=== PATIENT | female | born 1980 | race African-American/Black ===

== ENCOUNTER 2019-04-17 18:17 | Inpatient (IN) | payer MEDICARE, OTHER ==
[~2019-04-17] VITALS: Ht 162.6 cm; Wt 83.5 kg
[~2019-04-17 18:17] MED LIST: INSULIN REGULAR (DRIP) 100 UNITS in SODIUM CHLORIDE 0.9% 99 ML IV NR
[2019-04-17] MEDS ORDERED: MORPHINE SULFATE 4 MG/ML CPJ (NOT FOR IM USE) IV STA (19:07)
[2019-04-17] MEDS ORDERED: ONDANSETRON HCL 4MG/2ML INJ IV STA (19:07)
[2019-04-17] MEDS ORDERED: SODIUM CHLORIDE 0.9% 1,000 ML IV ONE (19:07)
[2019-04-17 19:45] LABS: BASOPHILS % 0.5 % (0.0-2.0); EOSINOPHILS % 0.1 % (0.0-5.0); HEMATOCRIT. 40.7 % (36.0-48.0); HEMOGLOBIN. 13.9 g/dL (12.0-16.0); LYMPHOCYTES % 9.2 % (20.0-50.0); MEAN CORPUSCULAR HEMOGLOBIN 40.2 pg (28.0-32.0); MEAN CORPUSCULAR VOLUME 117.8 fL (81.0-99.0); MEAN PLATELET VOLUME 8.2 fl (7.4-10.4); MONOCYTES % 4.1 % (2.0-8.0); NEUTROPHILS % 86.1 % (40.0-76.0); PLATELET 263 x1000/uL (130-400); RED BLOOD CELL COUNT 3.45 mill/uL (4.2-5.4); RED CELL DISTRIBUTION WIDTH 14.3 % (11.6-14.6)
[2019-04-17 19:49] LABS: CHLORIDE 89 mEq/L (98-107)
[2019-04-17 19:59] LABS: PLATELET ESTIMATE NORMAL
[2019-04-17] MEDS ORDERED: SODIUM CHLORIDE 0.9% 1,000 ML IV NR (21:00)
[2019-04-17 21:40] LABS: B-HCG QUANTITATIVE 7 mIU/mL (<3)
[2019-04-17 23:08] LABS: CLARITY URINE TURBID (CLEAR); COLOR URINE YELLOW (YELLOW); KETONES URINE 3+ (NEGATIVE); LEUKOCYTE ESTERASE URINE NEGATIVE (NEGATIVE); NITRITE URINE NEGATIVE (NEGATIVE); OCCULT BLOOD URINE 2+ (NEGATIVE); PROTEIN URINE 3+ (NEGATIVE); SPECIFIC GRAVITY URINE 1.018 (1.005-1.030); UROBILINOGEN URINE 0.2 E.U./dL (0.2-1.0)
[2019-04-17 23:32] LABS: PHOSPHORUS 6.6 mg/dL (2.5-4.9)
[2019-04-18] VITALS (22 sets, daily range): BP systolic 116–175; BP diastolic 69–109
[2019-04-18] MEDS ORDERED: SODIUM CHLORIDE 0.9% 1,000 ML IV ONE
[2019-04-18] MEDS ORDERED: MAGNESIUM/ALUMINUM HYDROXIDE/SIMETHICONE 30ML UDC PO PRN (00:30)
[2019-04-18] MEDS ORDERED: CLONIDINE 0.1MG TABLET PO PRN (00:30)
[2019-04-18] MEDS ORDERED: INSULIN REGULAR (DRIP) 100 UNITS in SODIUM CHLORIDE 0.9% 100 ML IV SCH (00:30)
[2019-04-18] MEDS ORDERED: DEXTROSE 50% WATER 50ML SYRINGE IV PRN ×3 (01:45→12:30)
[2019-04-18] MEDS ORDERED: HYDRALAZINE 20MG/ML VIAL IV PRN (01:45)
[2019-04-18] MEDS ORDERED: AZAT50TA24 PO (02:01)
[2019-04-18] MEDS ORDERED: DIPH25CA83 PO (02:01)
[2019-04-18] MEDS ORDERED: METO100T16 PO (02:01)
[2019-04-18] MEDS ORDERED: INSU100V36 SQ (02:01)
[2019-04-18] MEDS ORDERED: INSU100C6 SQ (02:01)
[2019-04-18] MEDS ORDERED: SIMV20TA6 PO (02:01)
[2019-04-18] MEDS ORDERED: SODIUM CHLORIDE 0.9% 1,000 ML IV SCH (02:16)
[2019-04-18] MEDS: BLOOD SUGAR DIAGNOSTIC STRIP TEST SCH ×15 (02:42→20:25)
[2019-04-18] MEDS: LORAZEPAM 2MG/ML CPJ IV PRN ×2 (02:43→08:53)
[2019-04-18 02:49] LABS: PHOSPHORUS 5.1 mg/dL (2.5-4.9)
[2019-04-18] MEDS ORDERED: INSULIN REGULAR (DRIP) 100 UNITS in SODIUM CHLORIDE 0.9% 99 ML IV SCH (03:00)
[2019-04-18] MEDS ORDERED: NON FORMULARY PATIENT HOME MED XX SCH (03:15)
[2019-04-18] MEDS: DIPHENHYDRAMINE 50MG/ML VIAL IV PRN ×4 (04:46→23:47)
[2019-04-18] MEDS: ONDANSETRON HCL 4MG/2ML INJ IV PRN ×3 (04:46→23:47)
[2019-04-18] MEDS: MORPHINE SULFATE 2 MG/ML CPJ (NOT FOR IM USE) IV PRN ×2 (08:54→23:47)
[2019-04-18] MEDS: AZATHIOPRINE 50MG TABLET PO SCH ×3 (08:54→17:44)
[2019-04-18] MEDS: METOPROLOL TARTRATE 100MG TABLET PO SCH (08:55)
[2019-04-18] MEDS: AMLODIPINE 10MG TABLET PO SCH (08:55)
[2019-04-18] MEDS ORDERED: FAMOTIDINE 20MG/2ML VIAL IV SCH ×2 (09:00→09:15)
[2019-04-18 09:44] LABS: BG BASE EXCESS -9.4 mmol/L (-2.0-2.0); BG CARBOXYHEMOGLOBIN 0.2 % (0.5-1.5); BG DEOXYHEMOGLOBIN 13.8 % (0.0-5.0); BG FRACTION INSPIRED OXYGEN 32; BG METHEMOGLOBIN 0.1 % (0.0-1.5); BG OXYGEN SATURATION 86.2 % (92.0-98.5); BG OXYHEMOGLOBIN 85.9 % (94.0-97.0); BG PCO2 33.3 mmHg (35.0-45.0); BG PH 7.299 (7.350-7.450); BG PO2 51.9 mmHg (75.0-100.0); BG SAMPLE SITE RIGHT RADIAL; BG TOTAL HEMOGLOBIN 11.9 g/dL (12.0-18.0); BG VENT MODE NASAL CANNULA
[2019-04-18 10:23] LABS: BASOPHILS % 0.2 % (0.0-2.0); EOSINOPHILS % 0.2 % (0.0-5.0); HEMATOCRIT. 33.6 % (36.0-48.0); HEMOGLOBIN. 11.9 g/dL (12.0-16.0); LYMPHOCYTES % 7.8 % (20.0-50.0); MEAN CORPUSCULAR HEMOGLOBIN 39.9 pg (28.0-32.0); MEAN CORPUSCULAR VOLUME 112.8 fL (81.0-99.0); MEAN PLATELET VOLUME 7.9 fl (7.4-10.4); MONOCYTES % 6.3 % (2.0-8.0); NEUTROPHILS % 85.5 % (40.0-76.0); PLATELET 193 x1000/uL (130-400); RED BLOOD CELL COUNT 2.98 mill/uL (4.2-5.4); RED CELL DISTRIBUTION WIDTH 13.9 % (11.6-14.6)
[2019-04-18 10:30] LABS: CHLORIDE 112 mEq/L (98-107)
[2019-04-18] MEDS ORDERED: SODIUM BICARBONATE 100 MEQ in SODIUM CHLORIDE 0.45% 1,000 ML IV SCH (11:30)
[2019-04-18] MEDS: SODIUM CHLORIDE 0.9% 1,000 ML IV SCH ×2 (11:51→20:29)
[2019-04-18] MEDS ORDERED: INSULIN GLARGINE UD 100 UNITS/ML SYR SUBCUT SCH (13:00)
[2019-04-18] MEDS ORDERED: INSULIN LISPRO 100 UNITS/ML SUBCUT SCH (13:20)
[2019-04-18 16:29] LABS: CREATINE KINASE 155 IU/L (26-192)
[2019-04-18] MEDS ORDERED: INS NPH/REG HM 70-30 100 UNITS/ML 10ML VIAL (HUMULIN 70-30) SUBCUT NR (17:00)
[2019-04-18] MEDS: INSULIN LISPRO 100 UNITS/ML SUBCUT SCH ×2 (17:44→21:00)
[2019-04-18 19:35] LABS: CHLORIDE 114 mEq/L (98-107)
[2019-04-18] MEDS: ATORVASTATIN CALCIUM 10MG TABLET PO SCH (20:30)
[2019-04-18] MEDS ORDERED: INS NPH/REG HM 70-30 100 UNITS/ML 10ML VIAL (HUMULIN 70-30) SUBCUT SCH (21:00)
[2019-04-19] VITALS (31 sets, daily range): BP systolic 118–188; BP diastolic 68–125
[2019-04-19] MEDS: LORAZEPAM 2MG/ML CPJ IV PRN ×2 (01:06→12:56)
[2019-04-19 01:14] LABS: CHLORIDE 111 mEq/L (98-107)
[2019-04-19 05:40] LABS: BASOPHILS % 0.1 % (0.0-2.0); EOSINOPHILS % 0.4 % (0.0-5.0); HEMATOCRIT. 35.1 % (36.0-48.0); HEMOGLOBIN. 12.2 g/dL (12.0-16.0); LYMPHOCYTES % 13.2 % (20.0-50.0); MEAN CORPUSCULAR HEMOGLOBIN 39.9 pg (28.0-32.0); MEAN CORPUSCULAR VOLUME 114.3 fL (81.0-99.0); MEAN PLATELET VOLUME 8.7 fl (7.4-10.4); MONOCYTES % 10.2 % (2.0-8.0); NEUTROPHILS % 76.1 % (40.0-76.0); PLATELET 101 x1000/uL (130-400); RED BLOOD CELL COUNT 3.07 mill/uL (4.2-5.4); RED CELL DISTRIBUTION WIDTH 14.6 % (11.6-14.6)
[2019-04-19 05:51] LABS: CHLORIDE 110 mEq/L (98-107)
[2019-04-19 05:58] LABS: PHOSPHORUS 1.1 mg/dL (2.5-4.9)
[2019-04-19] MEDS: BLOOD SUGAR DIAGNOSTIC STRIP TEST SCH ×16 (08:05→23:49)
[2019-04-19] MEDS ORDERED: INSULIN REGULAR (DRIP) 100 UNITS in SODIUM CHLORIDE 0.9% 99 ML IV PRN (08:15)
[2019-04-19] MEDS ORDERED: DEXTROSE 50% WATER 50ML SYRINGE IV PRN ×2 (08:30)
[2019-04-19] MEDS ORDERED: INS NPH/REG HM 70-30 100 UNITS/ML 10ML VIAL (HUMULIN 70-30) SUBCUT SCH (09:00)
[2019-04-19] MEDS: AMLODIPINE 10MG TABLET PO SCH (09:09)
[2019-04-19] MEDS: AZATHIOPRINE 50MG TABLET PO SCH ×3 (09:09→17:21)
[2019-04-19] MEDS: METOPROLOL TARTRATE 100MG TABLET PO SCH (09:09)
[2019-04-19] MEDS ORDERED: LIDOCAINE HCL 1% 20ML VIAL (Pyxis) INJ ONE (09:45)
[2019-04-19] MEDS ORDERED: INSULIN REGULAR (DRIP) 100 UNITS in SODIUM CHLORIDE 0.9% 100 ML IV SCH (10:00)
[2019-04-19] MEDS: SODIUM CHLORIDE 0.9% 1,000 ML IV SCH (11:05)
[2019-04-19] MEDS: DIPHENHYDRAMINE 50MG/ML VIAL IV PRN (12:24)
[2019-04-19] MEDS: MORPHINE SULFATE 2 MG/ML CPJ (NOT FOR IM USE) IV PRN ×2 (12:25→22:14)
[2019-04-19 12:57] LABS: *AMPHETAMINES SCREEN URINE NEGATIVE (NEGATIVE); *BARBITURATES SCREEN URINE NEGATIVE (NEGATIVE); *BENZODIAZEPINES SCREEN URINE NEGATIVE (NEGATIVE); *COCAINE SCREEN URINE NEGATIVE (NEGATIVE); CANNABINOID URINE SCREEN NEGATIVE (NEGATIVE)
[2019-04-19 12:58] LABS: METHADONE URINE SCREEN NEGATIVE (NEGATIVE); PHENCYCLIDINE URINE SCREEN NEGATIVE (NEGATIVE)
[2019-04-19] MEDS ORDERED: SODIUM PHOS,M-BASIC-D-BASIC 20 MM in DEXT 5% WATER 243.3333 ML IV NR (13:00)
[2019-04-19] MEDS ORDERED: MAGNESIUM 4 G PREMIX 100 ML IV NR (13:00)
[2019-04-19 13:02] LABS: OPIATES URINE SCREEN PRESUMTIVE POSITIVE (NEGATIVE)
[2019-04-19] MEDS ORDERED: HALOPERIDOL LACTATE 5MG/ML VIAL IM PRN (13:15)
[2019-04-19] MEDS: QUETIAPINE FUMARATE 25MG TABLET PO SCH (14:01)
[2019-04-19 15:47] LABS: CHLORIDE 110 mEq/L (98-107)
[2019-04-19 19:12] LABS: CHLORIDE 108 mEq/L (98-107)
[2019-04-19] MEDS ORDERED: KCL 20MEQ/100ML PREMIX 100 ML IV NR (20:00)
[2019-04-19] MEDS: ATORVASTATIN CALCIUM 10MG TABLET PO SCH (21:00)
[2019-04-19] MEDS ORDERED: DEXT 5%/0.9% NACL 1,000 ML IV SCH (22:00)
[2019-04-19 22:54] LABS: CHLORIDE 110 mEq/L (98-107)
[2019-04-20] VITALS (18 sets, daily range): BP systolic 128–157; BP diastolic 85–115
[2019-04-20 00:23] LABS: PHOSPHORUS 1.9 mg/dL (2.5-4.9)
[2019-04-20] MEDS: BLOOD SUGAR DIAGNOSTIC STRIP TEST SCH ×11 (00:32→21:17)
[2019-04-20] MEDS ORDERED: KCL 20MEQ/100ML PREMIX 100 ML IV NR (02:00)
[2019-04-20] MEDS: LORAZEPAM 2MG/ML CPJ IV PRN ×3 (02:14→23:02)
[2019-04-20] MEDS: MORPHINE SULFATE 2 MG/ML CPJ (NOT FOR IM USE) IV PRN ×3 (03:46→13:29)
[2019-04-20] MEDS ORDERED: POTASSIUM CHLORIDE INJ 30 MEQ in DEXT 5%/0.9% NACL 1,000 ML IV SCH ×2 (04:00→23:00)
[2019-04-20 05:44] LABS: BASOPHILS % 0.3 % (0.0-2.0); EOSINOPHILS % 2.8 % (0.0-5.0); HEMATOCRIT. 33.9 % (36.0-48.0); LYMPHOCYTES % 19.8 % (20.0-50.0); MEAN CORPUSCULAR HEMOGLOBIN 39.9 pg (28.0-32.0); MEAN CORPUSCULAR VOLUME 112.9 fL (81.0-99.0); MEAN PLATELET VOLUME 8.3 fl (7.4-10.4); NEUTROPHILS % 72.1 % (40.0-76.0); PLATELET 148 x1000/uL (130-400); RED CELL DISTRIBUTION WIDTH 14.2 % (11.6-14.6)
[2019-04-20 05:52] LABS: CHLORIDE 110 mEq/L (98-107)
[2019-04-20 06:06] LABS: PHOSPHORUS 2.6 mg/dL (2.5-4.9)
[2019-04-20 06:07] LABS: LDL CHOLESTEROL 113 mg/dL (5-100)
[2019-04-20 06:09] LABS: T4 FREE 1.34 ng/dL (0.76-1.46)
[2019-04-20 06:11] LABS: HDL CHOLESTEROL 37 mg/dL (40-59)
[2019-04-20] MEDS ORDERED: INSULIN LISPRO 100 UNITS/ML SUBCUT SCH (07:50)
[2019-04-20] MEDS ORDERED: INSULIN GLARGINE UD 100 UNITS/ML SYR SUBCUT SCH (08:00)
[2019-04-20] MEDS: ONDANSETRON HCL 4MG/2ML INJ IV PRN ×2 (08:10→21:18)
[2019-04-20] MEDS: QUETIAPINE FUMARATE 25MG TABLET PO SCH (08:10)
[2019-04-20] MEDS: DIPHENHYDRAMINE 50MG/ML VIAL IV PRN ×2 (08:10→21:18)
[2019-04-20] MEDS: AMLODIPINE 10MG TABLET PO SCH (08:10)
[2019-04-20] MEDS: METOPROLOL TARTRATE 100MG TABLET PO SCH (08:10)
[2019-04-20] MEDS: AZATHIOPRINE 50MG TABLET PO SCH ×4 (08:10→18:02)
[2019-04-20] MEDS: INSULIN LISPRO (LOW DOSE) 100 UNITS/ML SUBCUT SCH ×3 (08:14→17:40)
[2019-04-20] MEDS: INSULIN LISPRO 100 UNITS/ML SUBCUT SCH ×3 (08:17→17:58)
[2019-04-20] MEDS ORDERED: MAGNESIUM 2 G PREMIX 50 ML IV SCH (09:00)
[2019-04-20 11:00] LABS: T4 FREE 1.41 ng/dL (0.76-1.46)
[2019-04-20 11:11] LABS: FOLIC ACID (FOLATE) SERUM 8.3 ng/mL (>5.38)
[2019-04-20] MEDS ORDERED: INSULIN REGULAR (HUMULIN R) UD 100 UNITS/ML SYR SUBCUT NR (18:30)
[2019-04-20] MEDS ORDERED: INSULIN GLARGINE UD 100 UNITS/ML SYR SUBCUT NR (18:30)
[2019-04-20] MEDS: ATORVASTATIN CALCIUM 10MG TABLET PO SCH (21:17)
[2019-04-20] MEDS ORDERED: INSULIN REGULAR (HUMULIN R) 300UNITS/3ML SUBCUT NR (21:30)
[2019-04-21] VITALS: BP 144/79
[2019-04-21] MEDS ORDERED: SODIUM CHL 0.45% + KCL 20MEQ/L 1,000 ML IV SCH (02:00)
[2019-04-21] MEDS: MORPHINE SULFATE 2 MG/ML CPJ (NOT FOR IM USE) IV PRN (02:20)
[2019-04-21] MEDS ORDERED: INSULIN LISPRO SUBCUT SCH ×2 (07:40)
[2019-04-21 07:56] LABS: HEMATOCRIT. 31.6 % (36.0-48.0); HEMOGLOBIN. 11.3 g/dL (12.0-16.0); MEAN CORPUSCULAR HEMOGLOBIN 40.4 pg (28.0-32.0); MEAN CORPUSCULAR VOLUME 112.9 fL (81.0-99.0); RED CELL DISTRIBUTION WIDTH 14.2 % (11.6-14.6)
[2019-04-21 08:00] VITALS: BP 143/101
[2019-04-21 08:05] LABS: CHLORIDE 106 mEq/L (98-107)
[2019-04-21 08:11] LABS: PHOSPHORUS 4.2 mg/dL (2.5-4.9)
[2019-04-21 08:20] VITALS: BP 141/101
[2019-04-21] MEDS: BLOOD SUGAR DIAGNOSTIC STRIP TEST SCH (08:22)
[2019-04-21] MEDS: AZATHIOPRINE 50MG TABLET PO SCH (08:27)
[2019-04-21] MEDS: QUETIAPINE FUMARATE 25MG TABLET PO SCH (08:28)
[2019-04-21] MEDS: AMLODIPINE 10MG TABLET PO SCH (08:28)
[2019-04-21] MEDS: METOPROLOL TARTRATE 100MG TABLET PO SCH (08:28)
[2019-04-21] MEDS ORDERED: INSULIN DEGLUDEC SUBCUT SCH (09:00)
[2019-04-21 10:18] LABS: PLATELET ESTIMATE NORMAL
[2019-04-21] MEDS ORDERED: [UNRECOGNIZED DRUG - REMARK] SUBCUT SCH (12:40)
[2019-04-22] MEDS ORDERED: [UNRECOGNIZED DRUG - REMARK] SUBCUT SCH (09:00)
== END 2019-04-21 09:21 | disposition left against medical advice (07) | DRG 438 ==
LOC: ER 18:17 → CVICU 23:52 → EDBEDREQTM 04-18 00:04 → EDBEDREQ 04-18 00:04 → ENRESERV 04-18 00:06 → 7WST 04-20 11:49
PROVIDERS: ADMIT Hospitalist; ATTEND Hospitalist
PROC: 05HM33Z Insertion of Infusion Device into Right Internal Jugular Vein, Percutaneous Approach (ICD-10-PCS; principal; 2019-04-19)
PROC: B543ZZA Ultrasonography of Right Jugular Veins, Guidance (ICD-10-PCS; 2019-04-19)
DX: K85.90 Acute pancreatitis without necrosis or infection, unspecified (principal); E11.10 Type 2 diabetes mellitus with ketoacidosis without coma; G92 Toxic encephalopathy; L51.1 Stevens-Johnson syndrome; N17.9 Acute kidney failure, unspecified; E87.1 Hypo-osmolality and hyponatremia; E11.22 Type 2 diabetes mellitus with diabetic chronic kidney disease; N18.9 Chronic kidney disease, unspecified; M06.9 Rheumatoid arthritis, unspecified; K58.0 Irritable bowel syndrome with diarrhea; E66.9 Obesity, unspecified; M79.7 Fibromyalgia; E87.5 Hyperkalemia; E83.42 Hypomagnesemia; E87.6 Hypokalemia; I12.9 Hypertensive chronic kidney disease with stage 1 through stage 4 chronic kidney disease, or unspecified chronic kidney disease; Z78.1 Physical restraint status; Z79.4 Long term (current) use of insulin; Z82.49 Family history of ischemic heart disease and other diseases of the circulatory system; Z83.3 Family history of diabetes mellitus; Z88.0 Allergy status to penicillin; Z88.2 Allergy status to sulfonamides; Z88.8 Allergy status to other drugs, medicaments and biological substances; Z88.1 Allergy status to other antibiotic agents; Z91.040 Latex allergy status; Z68.31 Body mass index [BMI] 31.0-31.9, adult
CPT/HCPCS: 36415; 36600; 70551; 71045; 74176; 76770; 76801; 76937; 80048; 80061; 80305; 80320; 81003; 81025; 82010; 82140; 82375; 82533; 82550; 82607; 82746; 82805; 82962; 83036; 83735; 84100; 84439; 84443; 84481; 84702; 93970; 96361; 96365; 96375; 99285; C1725; J0360; J1200; J1630; J1815; J2060; J2270; J2405; J3475; J3480; J3490; J7030; J7042; J7050; J7060; J7500; G0480

== ENCOUNTER 2019-04-21 10:21 | Inpatient (IN) | payer MEDICARE, OTHER ==
[~2019-04-21] VITALS: Ht 165.1 cm; Wt 80.9 kg
[~2019-04-21 10:21] MED LIST changes: +AZAT50TA24 PO; +DIPH25CA83 PO; +INSU100C6 SQ; +INSU100V36 SQ; -INSULIN REGULAR (DRIP) 100 UNITS in SODIUM CHLORIDE 0.9% 99 ML IV NR; +METO100T16 PO; +SIMV20TA6 PO
[2019-04-21] MEDS ORDERED: AMLODIPINE 5MG TABLET PO ONE (13:00)
[2019-04-21 13:59] LABS: BASOPHILS % 0.5 % (0.0-2.0); EOSINOPHILS % 1.7 % (0.0-5.0); HEMATOCRIT. 34.5 % (36.0-48.0); LYMPHOCYTES % 11.4 % (20.0-50.0); MEAN CORPUSCULAR HEMOGLOBIN 39.3 pg (28.0-32.0); MEAN CORPUSCULAR VOLUME 112.8 fL (81.0-99.0); MEAN PLATELET VOLUME 8.2 fl (7.4-10.4); NEUTROPHILS % 79.4 % (40.0-76.0); PLATELET 169 x1000/uL (130-400); RED BLOOD CELL COUNT 3.06 mill/uL (4.2-5.4); RED CELL DISTRIBUTION WIDTH 14.1 % (11.6-14.6)
[2019-04-21 14:04] LABS: CHLORIDE 102 mEq/L (98-107)
[2019-04-21 14:16] LABS: PLATELET ESTIMATE NORMAL
[2019-04-21 14:39] LABS: CLARITY URINE CLEAR (CLEAR); COLOR URINE YELLOW (YELLOW); KETONES URINE 1+ (NEGATIVE); LEUKOCYTE ESTERASE URINE NEGATIVE (NEGATIVE); NITRITE URINE NEGATIVE (NEGATIVE); OCCULT BLOOD URINE NEGATIVE (NEGATIVE); PH URINE 5.5 (4.5-8.0); PROTEIN URINE 2+ (NEGATIVE); SPECIFIC GRAVITY URINE 1.029 (1.005-1.030); UROBILINOGEN URINE 0.2 E.U./dL (0.2-1.0)
[2019-04-21 15:02] LABS: PHENCYCLIDINE URINE SCREEN NEGATIVE (NEGATIVE)
[2019-04-21 15:03] LABS: *AMPHETAMINES SCREEN URINE NEGATIVE (NEGATIVE); *BARBITURATES SCREEN URINE NEGATIVE (NEGATIVE); *BENZODIAZEPINES SCREEN URINE NEGATIVE (NEGATIVE); *COCAINE SCREEN URINE NEGATIVE (NEGATIVE); CANNABINOID URINE SCREEN NEGATIVE (NEGATIVE); METHADONE URINE SCREEN NEGATIVE (NEGATIVE)
[2019-04-21 15:09] LABS: OPIATES URINE SCREEN PRESUMTIVE POSITIVE (NEGATIVE)
[2019-04-21] MEDS ORDERED: INSULIN REGULAR (HUMULIN R) 300UNITS/3ML SUBCUT ONE (17:30)
[2019-04-21] MEDS ORDERED: INSULIN REGULAR (DRIP) 100 UNITS in SODIUM CHLORIDE 0.9% 100 ML IV ONE (17:30)
[2019-04-21] MEDS ORDERED: DEXTROSE 50% WATER 50ML SYRINGE IV PRN ×2 (18:15→19:15)
[2019-04-21] MEDS ORDERED: INSULIN LISPRO 100 UNITS/ML SUBCUT SCH ×2 (18:20→18:45)
[2019-04-21 20:00] VITALS: BP 142/95
[2019-04-21] MEDS ORDERED: DIPHENHYDRAMINE 25MG CAPSULE PO PRN (20:45)
[2019-04-21] MEDS: BLOOD SUGAR DIAGNOSTIC STRIP TEST SCH (21:00)
[2019-04-21] MEDS: POTASSIUM CHLORIDE INJ 30 MEQ in SODIUM CHLORIDE 0.9% 1,000 ML IV SCH (22:01)
[2019-04-21] MEDS: MORPHINE SULFATE 2 MG/ML CPJ (NOT FOR IM USE) IV PRN (22:02)
[2019-04-21] MEDS: INSULIN LISPRO 100 UNITS/ML SUBCUT SCH (23:28)
[2019-04-22] VITALS: BP 140/97
[2019-04-22] MEDS ORDERED: BLOOD SUGAR DIAGNOSTIC STRIP TEST SCH ×2 (03:00→07:40)
[2019-04-22 04:00] VITALS: BP 148/100
[2019-04-22] MEDS: MORPHINE SULFATE 2 MG/ML CPJ (NOT FOR IM USE) IV PRN (06:21)
[2019-04-22 07:30] LABS: BASOPHILS % 0.8 % (0.0-2.0); EOSINOPHILS % 3.9 % (0.0-5.0); HEMATOCRIT. 30.8 % (36.0-48.0); LYMPHOCYTES % 17.5 % (20.0-50.0); MEAN CORPUSCULAR VOLUME 112.3 fL (81.0-99.0); MEAN PLATELET VOLUME 8.2 fl (7.4-10.4); MONOCYTES % 10.1 % (2.0-8.0); NEUTROPHILS % 67.7 % (40.0-76.0); PLATELET 178 x1000/uL (130-400); RED BLOOD CELL COUNT 2.74 mill/uL (4.2-5.4)
[2019-04-22 07:34] LABS: CHLORIDE 106 mEq/L (98-107)
[2019-04-22] MEDS: BLOOD SUGAR DIAGNOSTIC STRIP TEST SCH (07:53)
[2019-04-22 08:00] VITALS: BP 141/85
[2019-04-22] MEDS ORDERED: INSULIN LISPRO (LOW DOSE) 100 UNITS/ML SUBCUT SCH (08:10)
[2019-04-22] MEDS ORDERED: INSULIN DEGLUDEC SUBCUT SCH (09:00)
[2019-04-22] MEDS: INSULIN LISPRO 100 UNITS/ML SUBCUT SCH (09:13)
[2019-04-22] MEDS: POTASSIUM CHLORIDE INJ 30 MEQ in SODIUM CHLORIDE 0.9% 1,000 ML IV SCH (09:14)
[2019-04-22 10:14] VITALS: BP 141/85
== END 2019-04-22 12:59 | disposition home or self-care (01) | DRG 637 ==
LOC: ER 10:21 → 7WST 15:59 → EDBEDREQ 16:02 → EDBEDREQSVC 16:02 → ENRESERV 16:33 → CANRESERV 16:33 → ENRESERV 16:39
PROVIDERS: ADMIT Hospitalist; ATTEND Hospitalist
DX: E11.10 Type 2 diabetes mellitus with ketoacidosis without coma (principal); K85.90 Acute pancreatitis without necrosis or infection, unspecified; L51.1 Stevens-Johnson syndrome; K58.9 Irritable bowel syndrome, unspecified; M79.7 Fibromyalgia; E78.5 Hyperlipidemia, unspecified; M06.9 Rheumatoid arthritis, unspecified; F41.9 Anxiety disorder, unspecified; F31.9 Bipolar disorder, unspecified; I10 Essential (primary) hypertension; E83.42 Hypomagnesemia; F22 Delusional disorders; Z79.899 Other long term (current) drug therapy; Z79.4 Long term (current) use of insulin; Z88.0 Allergy status to penicillin; Z88.2 Allergy status to sulfonamides; Z88.1 Allergy status to other antibiotic agents; Z88.8 Allergy status to other drugs, medicaments and biological substances; Z91.040 Latex allergy status; Z87.440 Personal history of urinary (tract) infections
CPT/HCPCS: 36415; 71045; 80048; 80305; 81003; 82962; 83735; 83880; 84484; 93005; 96372; 99285; J1815; J2270; J3480; J7030; J7050; Q0163

== ENCOUNTER 2019-06-11 19:22 | Inpatient (IN) | payer MEDICARE, OTHER ==
[~2019-06-11] VITALS: Ht 165.1 cm; Wt 84.8 kg
[~2019-06-11 19:22] MED LIST changes: +SIMV-43 PO; -SIMV20TA6 PO
[2019-06-12] MEDS ORDERED: SODIUM CHLORIDE 0.9% 1,000 ML IV ONE (01:27)
[2019-06-12 02:04] LABS: CHLORIDE 104 mEq/L (98-107)
[2019-06-12 02:06] LABS: BASOPHILS % 0.6 % (0.0-2.0); EOSINOPHILS % 0.8 % (0.0-5.0); HEMOGLOBIN. 12.1 g/dL (12.0-16.0); LYMPHOCYTES % 25.2 % (20.0-50.0); MEAN CORPUSCULAR VOLUME 112.1 fL (81.0-99.0); MEAN PLATELET VOLUME 8.7 fl (7.4-10.4); MONOCYTES % 7.7 % (2.0-8.0); NEUTROPHILS % 65.7 % (40.0-76.0); PLATELET 176 x1000/uL (130-400); RED BLOOD CELL COUNT 3.03 mill/uL (4.2-5.4); RED CELL DISTRIBUTION WIDTH 15.1 % (11.6-14.6)
[2019-06-12 02:11] LABS: BETA HYDROXYBUTYRATE 0.2 mMol/L (0.0-0.3)
[2019-06-12] MEDS ORDERED: NITROGLYCERIN OINT 1GM/INCH UDPKT TD ONE (03:30)
[2019-06-12 04:35] LABS: PLATELET ESTIMATE NORMAL
[2019-06-12 07:30] LABS: CLARITY URINE CLEAR (CLEAR); COLOR URINE YELLOW (YELLOW); KETONES URINE TRACE (NEGATIVE); LEUKOCYTE ESTERASE URINE NEGATIVE (NEGATIVE); NITRITE URINE NEGATIVE (NEGATIVE); OCCULT BLOOD URINE TRACE (NEGATIVE); PH URINE 6.5 (4.5-8.0); PROTEIN URINE 3+ (NEGATIVE); SPECIFIC GRAVITY URINE 1.024 (1.005-1.030)
[2019-06-12 07:53] LABS: *AMPHETAMINES SCREEN URINE NEGATIVE (NEGATIVE); *BARBITURATES SCREEN URINE NEGATIVE (NEGATIVE); *BENZODIAZEPINES SCREEN URINE NEGATIVE (NEGATIVE); *COCAINE SCREEN URINE NEGATIVE (NEGATIVE); METHADONE URINE SCREEN NEGATIVE (NEGATIVE)
[2019-06-12 07:54] LABS: CANNABINOID URINE SCREEN NEGATIVE (NEGATIVE); OPIATES URINE SCREEN NEGATIVE (NEGATIVE); PHENCYCLIDINE URINE SCREEN NEGATIVE (NEGATIVE)
[2019-06-12] MEDS ORDERED: ACETAMINOPHEN 325MG TABLET PO SCH (08:00)
[2019-06-12 09:34] LABS: AMYLASE 150 IU/L (25-115)
[2019-06-12 09:35] LABS: C REACTIVE PROTEIN QUANT 2.7 mg/L (0.0-3.0)
[2019-06-12 09:39] LABS: CREATINE KINASE 172 IU/L (26-192)
[2019-06-12 09:40] LABS: CREATINE KINASE MB FRACTION 2.3 ng/mL (0.5-3.6)
[2019-06-12] MEDS ORDERED: NITROGLYCERIN 0.4MG TABLET SL SL PRN (09:45)
[2019-06-12] MEDS ORDERED: IPRATROPIUM/ALBUTEROL 0.5-3(2.5)MG/3ML NEB NEB PRN (09:45)
[2019-06-12] MEDS ORDERED: MAGNESIUM/ALUMINUM HYDROXIDE/SIMETHICONE 30ML UDC PO PRN (09:45)
[2019-06-12] MEDS ORDERED: ONDANSETRON HCL 4MG/2ML INJ IV PRN (09:45)
[2019-06-12] MEDS ORDERED: DOCUSATE SODIUM 100MG CAPSULE PO PRN (09:45)
[2019-06-12] MEDS ORDERED: GUAIFENESIN 200MG/10ML SUGAR FREE UDC PO PRN (09:45)
[2019-06-12] MEDS ORDERED: NA PHOS,M-B/NA PHOS,DI-BA ENEMA 118ML PR PRN (09:45)
[2019-06-12] MEDS: TRAMADOL 50MG TABLET PO PRN (11:41)
[2019-06-12] MEDS: LORAZEPAM 0.5MG TABLET PO PRN (13:04)
[2019-06-12] MEDS: SODIUM CHLORIDE 0.9% 1,000 ML IV SCH (13:44)
[2019-06-12] MEDS: CLONIDINE 0.1MG TABLET PO PRN (13:55)
[2019-06-12 18:02] LABS: TOTAL IRON BINDING CAPACITY 260 ug/dL (250-450)
[2019-06-12 18:20] LABS: FOLIC ACID (FOLATE) SERUM 7.7 ng/mL (>5.38)
[2019-06-12] MEDS ORDERED: ZOLPIDEM TARTRATE 5MG TABLET PO PRN (21:00)
[2019-06-12 21:30] VITALS: BP 138/82
[2019-06-12] MEDS ORDERED: AMLO10TA80 PO (21:46)
[2019-06-12] MEDS ORDERED: AMIT10TA6 PO (21:46)
[2019-06-12] MEDS: KETOROLAC 15MG/ML VIAL IV PRN (22:13)
[2019-06-13] VITALS: BP 152/86
[2019-06-13] MEDS: LORAZEPAM 0.5MG TABLET PO PRN ×3 (02:03→21:18)
[2019-06-13 03:54] VITALS: BP 145/98
[2019-06-13] MEDS: SODIUM CHLORIDE 0.9% 1,000 ML IV SCH ×3 (04:03→18:45)
[2019-06-13] MEDS: KETOROLAC 15MG/ML VIAL IV PRN ×4 (04:04→22:00)
[2019-06-13] MEDS: CLONIDINE 0.1MG TABLET PO PRN (04:04)
[2019-06-13 08:00] VITALS: BP 130/92
[2019-06-13 08:18] LABS: CHLORIDE 100 mEq/L (98-107)
[2019-06-13 08:25] LABS: BASOPHILS % 0.4 % (0.0-2.0); EOSINOPHILS % 1.6 % (0.0-5.0); HEMATOCRIT. 32.3 % (36.0-48.0); HEMOGLOBIN. 11.4 g/dL (12.0-16.0); LYMPHOCYTES % 28.6 % (20.0-50.0); MEAN CORPUSCULAR HEMOGLOBIN 39.7 pg (28.0-32.0); MEAN CORPUSCULAR VOLUME 112.1 fL (81.0-99.0); MEAN PLATELET VOLUME 8.3 fl (7.4-10.4); MONOCYTES % 9.4 % (2.0-8.0); PLATELET 125 x1000/uL (130-400); RED BLOOD CELL COUNT 2.88 mill/uL (4.2-5.4); RED CELL DISTRIBUTION WIDTH 14.5 % (11.6-14.6)
[2019-06-13 08:28] LABS: AMYLASE 157 IU/L (25-115)
[2019-06-13] MEDS ORDERED: DIPHENHYDRAMINE 25MG CAPSULE PO PRN (15:45)
[2019-06-13] MEDS ORDERED: DEXTROSE 50% WATER 50ML SYRINGE IV PRN (17:13)
[2019-06-13] MEDS: INSULIN LISPRO 100 UNITS/ML SUBCUT SCH ×2 (17:15→18:46)
[2019-06-13] MEDS: BLOOD SUGAR DIAGNOSTIC STRIP TEST SCH ×2 (17:39→21:00)
[2019-06-13] MEDS ORDERED: POTASSIUM CHLORIDE 20MEQ TABLET SR PO NR (18:30)
[2019-06-13 20:00] VITALS: BP 126/83
[2019-06-14] VITALS: BP 161/103
[2019-06-14] MEDS: INSULIN LISPRO 100 UNITS/ML SUBCUT SCH ×2 (05:40→07:02)
[2019-06-14] MEDS: TRAMADOL 50MG TABLET PO PRN (05:51)
[2019-06-14 07:00] LABS: BASOPHILS % 0.5 % (0.0-2.0); EOSINOPHILS % 1.1 % (0.0-5.0); HEMATOCRIT. 33.5 % (36.0-48.0); LYMPHOCYTES % 27.9 % (20.0-50.0); MEAN CORPUSCULAR VOLUME 111.5 fL (81.0-99.0); MONOCYTES % 11.8 % (2.0-8.0); NEUTROPHILS % 58.7 % (40.0-76.0); PLATELET 141 x1000/uL (130-400); RED BLOOD CELL COUNT 3.01 mill/uL (4.2-5.4); RED CELL DISTRIBUTION WIDTH 14.5 % (11.6-14.6)
[2019-06-14] MEDS: BLOOD SUGAR DIAGNOSTIC STRIP TEST SCH (07:02)
[2019-06-14] MEDS: KETOROLAC 15MG/ML VIAL IV PRN (07:04)
[2019-06-14 07:07] LABS: CHLORIDE 106 mEq/L (98-107)
[2019-06-14 07:20] LABS: PHOSPHORUS 3.2 mg/dL (2.5-4.9)
[2019-06-14 08:00] VITALS: BP 155/94
[2019-06-14 10:12] VITALS: BP 155/94
== END 2019-06-14 11:10 | disposition home or self-care (01) | DRG 439 ==
LOC: ER 19:22 → 5WST 06-12 04:20 → EDBEDREQ 06-12 04:27 → EDBEDREQTM 06-12 04:27 → SUPCPDRO 06-12 17:30 → ENRESERV 06-12 18:26
PROVIDERS: ADMIT Internal Medicine; ATTEND Internal Medicine
DX: K85.90 Acute pancreatitis without necrosis or infection, unspecified (principal); E44.1 Mild protein-calorie malnutrition; L51.1 Stevens-Johnson syndrome; R07.89 Other chest pain; M32.9 Systemic lupus erythematosus, unspecified; M79.7 Fibromyalgia; D63.8 Anemia in other chronic diseases classified elsewhere; E11.65 Type 2 diabetes mellitus with hyperglycemia; E83.42 Hypomagnesemia; F41.9 Anxiety disorder, unspecified; M19.90 Unspecified osteoarthritis, unspecified site; F31.9 Bipolar disorder, unspecified; Z88.0 Allergy status to penicillin; Z88.2 Allergy status to sulfonamides; Z88.8 Allergy status to other drugs, medicaments and biological substances; Z79.4 Long term (current) use of insulin; Z88.6 Allergy status to analgesic agent; Z88.1 Allergy status to other antibiotic agents; Z91.040 Latex allergy status; Z68.31 Body mass index [BMI] 31.0-31.9, adult; Z87.440 Personal history of urinary (tract) infections
CPT/HCPCS: 36415; 71045; 76700; 80053; 80305; 81003; 82010; 82150; 82550; 82553; 82607; 82746; 82962; 83036; 83540; 83550; 83605; 83735; 84100; 84484; 85025; 85651; 86140; 86850; 86900; 87804; 93005; 97162; 97166; 99285; C1893; J1815; J1885; J7030; Q0163